=== PATIENT | female | born 1990 | race African-American/Black ===

== ENCOUNTER 2025-05-03 19:40 | Emergency (ER) | payer SELFPAY ==
[2025-05-03 19:45] VITALS: BP 132/96
--- NOTE | 2025-05-03 21:20 | ED.GENMED ---
History of Present Illness
General
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
Source: patient
Exam Limitations: none
Time Seen by Provider: 05/03/25 20:58
Nursing documentation reviewed up to this point in time: agreed with
History of Present Illness
History of Present Illness:
34-year-old female with no reported chronic medical issues presents to the ER requesting STD testing and empiric treatment. She says that her fianc� had a sexual encounter with another person who was positive for chlamydia. He was tested and
treated. She was told that she should be tested and treated as well. She has not had any symptoms�denies any vaginal discharge, abdominal pain, fever. She is currently on her menstrual period is having some spotting. She is requesting empiric
treatment. Denies any allergies.
Review of Systems
Review of Systems
All Other Systems: ROS reviewed and negative except as documented in HPI and ROS
Constitutional: Denies fever
: Reports bleeding (Spotting); Denies dysuria, frequency or discharge
Phy Exam
Physical Exam
Physical Exam:
General: Well appearing and non-toxic
HEENT: protecting airway
Neck: appears supple
CV: No evidence of cyanosis
Resp: No accessory muscle use
Abd: Non-distended, nontender
: (Performed with female nurse in room as lift manager) Normal external genitalia without any sores or lesions, scant amount of blood in the vaginal vault, no discharge noted
Extremities: No deformities
Neuro: Alert
Psych: Normal affect
Skin: Intact
Scores
Heart Failure Risk
Heart Failure Risk Score: Not Applicable
Heart Score for Chest Pain Patients
STEMI patient?: Not applicable
Withdrawal Assessment of Alcohol
Withdrawal Assessment Completed?: Not applicable
Course
Orders/Labs/Results
Orders:
Orders
05/03/25 20:59
Chlamydia/GC by PCR Urgent
[facility] Source: Endo-Cervical
Specimen Description:
Source:: ENDOCERVICAL
Trichomonas - Wet Prep Urgent
[facility] Source: Vagina
Specimen Description:
Test Result ONCE
05/03/25 21:16
CefTRIAXone [Rocephin] 1,000 mg IV NOW STA
Doxycycline [Vibramycin] 100 mg PO NOW STA
Vital Signs
Initial and Last Documented VS:
Initial Vital Signs
Temp Pulse Resp BP Pulse Ox
37.0 C 85 18 132/96 100
05/03/25 19:45 05/03/25 19:45 05/03/25 19:45 05/03/25 19:45 05/03/25 19:45
Last Documented Vital Signs
Temp Pulse Resp BP Pulse Ox
37.0 C 85 18 132/96 100
05/03/25 19:45 05/03/25 19:45 05/03/25 19:45 05/03/25 19:45 05/03/25 19:45
MDM/Problems Addressed
Differential Diagnosis Includes:
STD
MDM/Problems Addressed:
34-year-old female presents for STD texting and empiric treatment after partner had chlamydia exposure. She is asymptomatic. Vitals and exam as above. Cervical swabs taken and sent. Will treat empirically. Stable for discharge.
*Pulse Oximetry
Patient hypoxic: no
*Critical Care Note
Total Time (30-74mins, 75-104mins- exclusive of procedures): Not Applicable
Data Reviewed
Source: patient
ED Attending Note
-
Portions of this chart may have been created with voice recognition software.� Occasional wrong word or��sound alike� substitutions may have occurred due to the inherent limitations of voice recognition software.
Discharge Plan
Departure
Patient Disposition: Home (Routine Discharge)
Date of Disposition: 05/03/25
Time of Disposition: 21:20
Patient with high blood pressure during this ER visit?: No
Discharge Problem:
Possible exposure to sexually transmitted infection
Instructions: Chlamydia - Discharge instructions
Prescriptions:
New
doxycycline hyclate 100 mg tablet
100 mg PO BID Qty: 14 0RF
Activity Restrictions/Additional Instructions:
Thank you for visiting the Emergency Department at [facility].
1. Please schedule a follow up appointment as directed. Call first thing tomorrow morning to make an appointment.
2. If indicated, please take your medications as instructed and indicated on discharge paperwork.
3. If any of your symptoms do not improve, or persist, or become more severe within 6-12 hours, please return to the emergency department for further care.
4. Please return to the emergency department if you develop a headache, neck pain/stiffness, fever greater than 100.4F, chest pain, shortness of breath, persistent nausea, vomiting, slurred speech, difficulty walking, numbness/tingling, weakness,
signs of infection or any other symptoms that are worrisome to you.
Please call [phone] if you have any questions.
Interventions
Interventions:
*Risk Screen - Suicide Last Done: 05/03/25 19:44
*Neglect/Abuse Screening Last Done: 05/03/25 19:44
Discharge Date and Time
Print Language: MALAGASY
[2025-05-03] MEDS: VIBRAMYCIN 100 MG PO (21:43)
[2025-05-03] MEDS: ROCEPHIN 2.8571 MG IM (22:15)
== END 2025-05-03 22:52 | disposition home or self-care (01) ==
LOC: EMR 19:40
PROVIDERS: EMERGENCY PHYSICIAN Emergency Medicine
DX: Z20.2 Contact with and (suspected) exposure to infections with a predominantly sexual mode of transmission (principal)
CPT/HCPCS: 99284; 96372; 87210; 87491; 87591